=== PATIENT | female | born 1960 | race African-American/Black ===

== ENCOUNTER 2018-09-11 13:15 | Emergency (ER) | payer OTHER ==
[~2018-09-11] VITALS: Ht 167.6 cm; Wt 98.6 kg
[2018-09-11 14:35] LABS: BASOPHILS % 1.8 % (0.0-2.0); EOSINOPHILS % 0.9 % (0.0-5.0); HEMATOCRIT. 39.9 % (36.0-48.0); HEMOGLOBIN. 13.2 g/dL (12.0-16.0); LYMPHOCYTES % 46.4 % (20.0-50.0); MEAN CORPUSCULAR HEMOGLOBIN 26.1 pg (28.0-32.0); MEAN CORPUSCULAR VOLUME 79.1 fL (81.0-99.0); MONOCYTES % 4.2 % (2.0-8.0); NEUTROPHILS % 46.7 % (40.0-76.0); PLATELET 371 x1000/uL (130-400); RED BLOOD CELL COUNT 5.05 mill/uL (4.2-5.4); RED CELL DISTRIBUTION WIDTH 15.3 % (11.6-14.6)
[2018-09-11 14:40] LABS: CHLORIDE 105 mEq/L (98-107)
[2018-09-11 16:30] VITALS: BP 133/79
== END 2018-09-11 16:40 | disposition home or self-care (01) ==
LOC: ER 13:15
DX: R20.2 Paresthesia of skin (principal); R03.0 Elevated blood-pressure reading, without diagnosis of hypertension
CPT/HCPCS: 36415; 71045; 82962; 84484; 93005; 99284

== ENCOUNTER 2023-08-16 18:15 | Emergency (ER) | payer OTHER ==
[~2023-08-16] VITALS: Ht 167.6 cm; Wt 73.0 kg
[2023-08-16 18:17] VITALS: O2SAT 98
[2023-08-16 18:20] VITALS: TEMP 97.8
[2023-08-16] MEDS: SODIUM CHLORIDE 0.9% 1,000 ML IV ONE (19:12)
[2023-08-16 19:49] LABS: BASOPHILS % 0.3 % (0.0-2.0); CHLORIDE 107 mEq/L (98-107); EOSINOPHILS % 0.6 % (0.0-5.0); HEMATOCRIT. 38.3 % (36.0-48.0); HEMOGLOBIN. 12.3 g/dL (12.0-16.0); LYMPHOCYTES % 21.5 % (20.0-50.0); MEAN CORPUSCULAR HEMOGLOBIN 26.4 pg (28.0-32.0); MEAN CORPUSCULAR HGB CONC 32.1 g/dL (31.0-37.0); MEAN CORPUSCULAR VOLUME 82.3 fL (81.0-99.0); MEAN PLATELET VOLUME 8.6 fl (7.4-10.4); MONOCYTES % 5.1 % (2.0-8.0); NEUTROPHILS % 72.5 % (40.0-76.0); PLATELET 354 x1000/uL (130-400); POTASSIUM 3.8 mEq/L (3.5-5.1); RED BLOOD CELL COUNT 4.66 mill/uL (4.2-5.4); RED CELL DISTRIBUTION WIDTH 14.3 % (11.6-14.6); SODIUM 138 mEq/L (136-145); WHITE BLOOD COUNT 12.4 x1000/uL (4.5-11.0)
[2023-08-16 19:50] LABS: CARBON DIOXIDE 24 mEq/L (21-32)
[2023-08-16 19:51] LABS: CALCIUM 9.1 mg/dL (8.7-10.4)
[2023-08-16 19:55] LABS: CREATININE 0.9 mg/dL (0.6-1.0); GLUCOSE 136 mg/dL (70-105)
[2023-08-16 19:56] LABS: PROTHROMBIN TIME 11.4 sec (9.6-11.0); UREA NITROGEN BLOOD 11 mg/dL (9-23)
[2023-08-16 20:17] LABS: TROPONIN I HIGH SENSITIVITY < 4 ng/L (3.0-34)
[2023-08-16 22:28] VITALS: BP 143/101; PULSE 72; RESP 17
== END 2023-08-16 22:31 | disposition home or self-care (01) ==
LOC: ER 18:15 → CANBEDREQ 08-18 20:55
DX: R55 Syncope and collapse (principal); E11.9 Type 2 diabetes mellitus without complications; I10 Essential (primary) hypertension; Z86.73 Personal history of transient ischemic attack (TIA), and cerebral infarction without residual deficits; Z90.710 Acquired absence of both cervix and uterus
CPT/HCPCS: 99285; 96360; 70450; 71045; 96361; 80048; 83880; 83605; 85025; 85610; 87040; 84484; 36415; 84145; 93005; J7030